=== PATIENT | male | born 1985 | race Two or more races ===

== ENCOUNTER 2021-08-23 14:58 | Emergency (ER) | payer MEDICAID, OTHER ==
[~2021-08-23] VITALS: Ht 170.2 cm; Wt 199.6 kg
[2021-08-23] MEDS ORDERED: FUROSEMIDE 40 MG/4 ML VIAL IV ONE (15:15)
[2021-08-23 15:35] VITALS: BP 146/85
[2021-08-23 15:56] LABS: Basophils # (auto) 0 10 ^3/uL (0-0.2); Basophils % (auto) 0.3 % (0.0-2.0); Eosinophils # (auto) 0 10 ^3/uL (0-0.8); Eosinophils % (auto) 0.5 % (0.0-7.0); Hematocrit 41.9 % (41.0-53.0); Hemoglobin 13.9 g/dL (13.5-17.5); Lymphocytes # (auto) 1.3 10 ^3/uL (0.4-5.4); Lymphocytes % (auto) 19.1 % (10.0-50.0); Mean Corpuscular Hgb Conc. 33.3 g/dL (32.0-36.0); Mean Corpuscular Volume 87.2 fL (80.0-100.0); Monocytes # (auto) 0.4 10 ^3/uL (0-1.3); Monocytes % (auto) 5.4 % (0.0-12.0); Neutrophils # (auto) 5.2 10 ^3/uL (1.6-8.6); Neutrophils % (auto) 74.7 % (37.0-80.0); Nucleated Red Blood Cells % 0.1 %; Red Cell Distribution Width 14.4 % (11.8-14.3)
[2021-08-23 16:31] LABS: Alanine Aminotransferase 115 U/L (16-61); Albumin 3.3 g/dL (3.4-5.0); Anion Gap 8 (5-15); Aspartate Aminotransferase 67 U/L (15-37); BUN/Creatinine Ratio 16.5; Blood Urea Nitrogen 14 mg/dL (7-18); Calcium 8.8 mg/dL (8.5-10.1); Carbon Dioxide 27 mmol/L (21-32); Chloride 108 mmol/L (98-107); GFR African American 133 mL/min; GFR Non-African American 110 mL/min; Glucose 120 mg/dL (74-106); Potassium 3.8 mmol/L (3.5-5.1); Sodium 143 mmol/L (136-145)
[2021-08-23 16:35] LABS: Alkaline Phosphatase 47 U/L (45-117); Bilirubin, Total 0.4 mg/dL (0.2-1.0); Total Protein 7.8 g/dL (6.4-8.2)
== END 2021-08-23 19:33 | disposition home or self-care (01) ==
LOC: ER 14:58
DX: I11.0 Hypertensive heart disease with heart failure (principal); I50.9 Heart failure, unspecified; E11.9 Type 2 diabetes mellitus without complications; E78.5 Hyperlipidemia, unspecified
CPT/HCPCS: 36415; 71045; 80053; 83880; 84484; 85025

== ENCOUNTER 2024-08-17 11:53 | Inpatient (IN) | payer MEDICAID ==
[~2024-08-17] VITALS: Ht 170.2 cm; Wt 205.0 kg
[2024-08-17] MEDS: NITROGLYCERIN 2% OINT 1GM PKG TD ONE (12:15)
[2024-08-17 12:20] LABS: Urine Bacteria None Seen /hpf (None Seen)
[2024-08-17 12:29] LABS: Urine Blood Negative /uL (Negative); Urine Clarity Clear (Clear); Urine Color Yellow (Yellow); Urine Protein, UAD 1+ (Negative); Urine Urobilinogen Normal (Negative); Urine WBC <1 /hpf (0 - 3); Urine pH 6.5 (5.0-9.0)
[2024-08-17] MEDS: ONDANSETRON ODT 4 MG TAB PO ONE (13:01)
[2024-08-17 13:27] LABS: Basophils # (auto) 0 10 ^3/uL (0-0.2); Basophils % (auto) 0.1 % (0.0-2.0); Eosinophils # (auto) 0.1 10 ^3/uL (0-0.8); Eosinophils % (auto) 1.4 % (0.0-7.0); Hematocrit 49.1 % (41.0-53.0); Hemoglobin 16.7 g/dL (13.5-17.5); Lymphocytes # (auto) 2.3 10 ^3/uL (0.4-5.4); Lymphocytes % (auto) 30.3 % (10.0-50.0); Mean Corpuscular Hemoglobin 29.7 pg (28.0-32.0); Mean Corpuscular Volume 87.2 fL (80.0-100.0); Monocytes # (auto) 0.6 10 ^3/uL (0-1.3); Monocytes % (auto) 7.4 % (0.0-12.0); Neutrophils # (auto) 4.6 10 ^3/uL (1.6-8.6); Neutrophils % (auto) 60.8 % (37.0-80.0); Nucleated Red Blood Cells % 0.1 %; Platelet Count (auto) 182 10^3/uL (140-450); Red Blood Cells 5.63 10^6/uL (4.5-5.90); Red Cell Distribution Width 15.1 % (11.8-14.3); White Blood Cell 7.5 10^3/uL (4.4-10.8)
[2024-08-17 13:46] LABS: Alanine Aminotransferase 93 U/L (7-40); Albumin 4.6 g/dL (3.2-4.8); Alkaline Phosphatase 56 U/L (46-116); Anion Gap 6 (5-15); Aspartate Aminotransferase 85 U/L (13-40); BUN/Creatinine Ratio 15.2 (10.0-20.0); Blood Urea Nitrogen 12 mg/dL (9-23); Calcium 9.6 mg/dL (8.7-10.4); Carbon Dioxide 32 mmol/L (20-31); Chloride 104 mmol/L (98-107); Glucose 107 mg/dL (74-106); Lipase 62 U/L (12-53); Potassium 3.3 mmol/L (3.5-5.1); Sodium 142 mmol/L (136-145)
[2024-08-17 13:47] LABS: Bilirubin, Total 0.5 mg/dL (0.2-1.0); Total Protein 7.8 g/dL (5.7-8.2)
[2024-08-17] MEDS: MORPHINE SULFATE 4 MG/ML SYR/VIAL IV ONE ×2 (13:52→17:57)
[2024-08-17] MEDS: POTASSIUM CHL 20 Meq TABLET PO ONE (16:57)
[2024-08-17] MEDS: ONDANSETRON HCL 4 MG/2 ML VIAL IV ONE (17:56)
[2024-08-17] MEDS ORDERED: ACETAMINOPHEN 325 MG TAB PO PRN (18:15)
[2024-08-17 19:50] VITALS: PULSE 82; RESP 14; O2SAT 97
[2024-08-17] MEDS: LACTATED RINGER'S 1,000 ML IV ONE (20:30)
[2024-08-17] MEDS: PANTOPRAZOLE 40 MG/10 ML VIAL INJ IV SCH (20:30)
[2024-08-17] MEDS: HYDROmorphone HCL 2 MG/ML VL/or syr IV PRN (20:54)
[2024-08-17] MEDS: ONDANSETRON HCL 4 MG/2 ML VIAL IV PRN (20:55)
[2024-08-17] MEDS: SODIUM CHLOR 0.9% PF (SALINE LOCK) 10ML VIAL/SYR IV SCH (21:36)
[2024-08-17 23:19] VITALS: BP 142/82; PULSE 74; RESP 18; TEMP 97.6; O2SAT 92
[2024-08-17 23:20] VITALS: BP 142/82; PULSE 74; PULSE 92; RESP 18; TEMP 97.6; O2SAT 92; O2SAT 96
[2024-08-18] VITALS (8 sets, daily range): BP systolic 119–144; BP diastolic 67–86; PULSE 65–83; RESP 16–18; TEMP 98–98.3; O2SAT 91–96
[2024-08-18 08:10] LABS: Basophils # (auto) 0 10 ^3/uL (0-0.2); Basophils % (auto) 0.3 % (0.0-2.0); Eosinophils # (auto) 0.1 10 ^3/uL (0-0.8); Eosinophils % (auto) 1.1 % (0.0-7.0); Hematocrit 44.9 % (41.0-53.0); Hemoglobin 15.2 g/dL (13.5-17.5); Lymphocytes % (auto) 35.8 % (10.0-50.0); Mean Corpuscular Hemoglobin 29.5 pg (28.0-32.0); Mean Corpuscular Hgb Conc. 33.9 g/dL (32.0-36.0); Monocytes # (auto) 0.4 10 ^3/uL (0-1.3); Monocytes % (auto) 6.9 % (0.0-12.0); Neutrophils # (auto) 3.1 10 ^3/uL (1.6-8.6); Neutrophils % (auto) 55.9 % (37.0-80.0); Nucleated Red Blood Cells % 0.1 %; Platelet Count (auto) 178 10^3/uL (140-450); Red Blood Cells 5.16 10^6/uL (4.5-5.90); White Blood Cell 5.6 10^3/uL (4.4-10.8)
[2024-08-18 08:27] LABS: Alanine Aminotransferase 76 U/L (7-40); Albumin 4.1 g/dL (3.2-4.8); Alkaline Phosphatase 40 U/L (46-116); Anion Gap 7 (5-15); BUN/Creatinine Ratio 17.6 (10.0-20.0); Blood Urea Nitrogen 13 mg/dL (9-23); Calcium 9.2 mg/dL (8.7-10.4); Carbon Dioxide 30 mmol/L (20-31); Chloride 104 mmol/L (98-107); Glucose 112 mg/dL (74-106); Magnesium 1.9 mg/dL (1.6-2.6); Potassium 2.9 mmol/L (3.5-5.1); Sodium 141 mmol/L (136-145)
[2024-08-18 08:28] LABS: Aspartate Aminotransferase 65 U/L (13-40); Bilirubin, Total 0.7 mg/dL (0.2-1.0); Total Protein 7.3 g/dL (5.7-8.2)
[2024-08-18] MEDS: ENOXAPARIN SOD 40 MG/0.4 ML SYRINGE SC SCH (08:57)
[2024-08-18] MEDS: POTASSIUM CHLORIDE 60 MEQ, LIDOCAINE 1% (LOCAL ANESTH.) 6 ML in SODIUM CHL 0.9% 500 ML IV ONE (11:12)
[2024-08-18] MEDS: POTASSIUM EFFERVESENT TAB 25 MEQ PO ONE (13:34)
[2024-08-18 15:09] LABS: Triglycerides 200 mg/dL (< 150)
[2024-08-18 15:10] LABS: LDL Cholesterol 109 mg/dL (< 100)
[2024-08-18 15:11] LABS: Cholesterol 173 mg/dL (< 200); HDL Cholesterol 37 mg/dL (40-59)
[2024-08-18] MEDS: HYDROcodone-ACET 5/325MG TAB PO PRN (17:17)
[2024-08-18] MEDS: ALPRAZolam 0.5 MG TAB PO PRN (20:13)
[2024-08-19] VITALS (8 sets, daily range): BP systolic 116–152; BP diastolic 79–93; PULSE 66–85; RESP 17–66; TEMP 97.5–98.3; O2SAT 90–100
[2024-08-19] MEDS: DOCUSATE SOD 100 MG CAP PO PRN (05:36)
[2024-08-19 06:29] LABS: Basophils # (auto) 0 10 ^3/uL (0-0.2); Basophils % (auto) 0.3 % (0.0-2.0); Eosinophils # (auto) 0.1 10 ^3/uL (0-0.8); Hematocrit 45.1 % (41.0-53.0); Hemoglobin 15.4 g/dL (13.5-17.5); Lymphocytes # (auto) 2.1 10 ^3/uL (0.4-5.4); Mean Corpuscular Hemoglobin 29.8 pg (28.0-32.0); Mean Corpuscular Hgb Conc. 34.1 g/dL (32.0-36.0); Mean Corpuscular Volume 87.5 fL (80.0-100.0); Monocytes # (auto) 0.5 10 ^3/uL (0-1.3); Monocytes % (auto) 8.1 % (0.0-12.0); Neutrophils % (auto) 52.6 % (37.0-80.0); Nucleated Red Blood Cells % 0.2 %; Platelet Count (auto) 173 10^3/uL (140-450); Red Blood Cells 5.15 10^6/uL (4.5-5.90); Red Cell Distribution Width 14.7 % (11.8-14.3); White Blood Cell 5.8 10^3/uL (4.4-10.8)
[2024-08-19 06:52] LABS: Alanine Aminotransferase 81 U/L (7-40); Albumin 4.4 g/dL (3.2-4.8); Alkaline Phosphatase 40 U/L (46-116); Anion Gap 5 (5-15); Aspartate Aminotransferase 70 U/L (13-40); BUN/Creatinine Ratio 12.3 (10.0-20.0); Bilirubin, Total 0.9 mg/dL (0.2-1.0); Blood Urea Nitrogen 9 mg/dL (9-23); Calcium 9.3 mg/dL (8.7-10.4); Carbon Dioxide 33 mmol/L (20-31); Chloride 101 mmol/L (98-107); Glucose 109 mg/dL (74-106); Magnesium 2.1 mg/dL (1.6-2.6); Potassium 3.1 mmol/L (3.5-5.1); Sodium 139 mmol/L (136-145); Total Protein 7.7 g/dL (5.7-8.2)
[2024-08-19] MEDS: POTASSIUM CHL 20 Meq TABLET PO ONE (07:45)
[2024-08-19] MEDS: SUCRALFATE 1 GM TAB PO STA (14:01)
[2024-08-19] MEDS ORDERED: CHOL20007 PO (16:57)
[2024-08-19] MEDS ORDERED: ASPI-717 PO (16:57)
[2024-08-19] MEDS ORDERED: CHLO50TA PO (16:57)
[2024-08-19] MEDS ORDERED: MULT-351 PO (16:57)
[2024-08-19] MEDS ORDERED: ENAL1TAB46 PO (16:57)
[2024-08-19] MEDS ORDERED: POTA-228 PO (16:57)
[2024-08-19] MEDS ORDERED: ALLO100T PO (16:57)
[2024-08-19] MEDS ORDERED: SEMA2INJ3 SC (16:57)
[2024-08-19] MEDS ORDERED: MAGN400T40 PO (16:57)
[2024-08-19] MEDS ORDERED: ALPR0.5T PO (16:57)
[2024-08-19] MEDS ORDERED: FENO200C22 PO (16:57)
[2024-08-19] MEDS ORDERED: OMEP20TA44 PO (16:57)
[2024-08-19] MEDS: SUCRALFATE 1 GM TAB PO SCH (21:11)
[2024-08-20 05:23] LABS: Basophils # (auto) 0 10 ^3/uL (0-0.2); Basophils % (auto) 0.4 % (0.0-2.0); Eosinophils # (auto) 0.1 10 ^3/uL (0-0.8); Eosinophils % (auto) 1.8 % (0.0-7.0); Hematocrit 41.7 % (41.0-53.0); Hemoglobin 14.2 g/dL (13.5-17.5); Lymphocytes # (auto) 1.6 10 ^3/uL (0.4-5.4); Mean Corpuscular Hemoglobin 29.5 pg (28.0-32.0); Mean Corpuscular Volume 86.7 fL (80.0-100.0); Monocytes # (auto) 0.3 10 ^3/uL (0-1.3); Monocytes % (auto) 7.6 % (0.0-12.0); Neutrophils # (auto) 2.4 10 ^3/uL (1.6-8.6); Neutrophils % (auto) 54.2 % (37.0-80.0); Nucleated Red Blood Cells % 0.2 %; Platelet Count (auto) 156 10^3/uL (140-450); Red Blood Cells 4.81 10^6/uL (4.5-5.90); Red Cell Distribution Width 14.4 % (11.8-14.3); White Blood Cell 4.5 10^3/uL (4.4-10.8)
[2024-08-20 05:38] LABS: Alanine Aminotransferase 78 U/L (7-40); Albumin 4.1 g/dL (3.2-4.8); Alkaline Phosphatase 37 U/L (46-116); Anion Gap 5 (5-15); Aspartate Aminotransferase 66 U/L (13-40); BUN/Creatinine Ratio 9.1 (10.0-20.0); Blood Urea Nitrogen 6 mg/dL (9-23); Calcium 8.9 mg/dL (8.7-10.4); Carbon Dioxide 30 mmol/L (20-31); Chloride 103 mmol/L (98-107); Glucose 107 mg/dL (74-106); Lipase 45 U/L (12-53); Potassium 2.9 mmol/L (3.5-5.1); Sodium 138 mmol/L (136-145)
[2024-08-20 05:39] LABS: Bilirubin, Total 0.8 mg/dL (0.2-1.0); Total Protein 7.1 g/dL (5.7-8.2)
[2024-08-20] MEDS: POTASSIUM CHL 20 Meq TABLET PO ONE (07:00)
[2024-08-20 08:00] VITALS: PULSE 64; RESP 19; O2SAT 94
[2024-08-20 09:00] VITALS: BP 133/85; PULSE 64; RESP 22; TEMP 97.6; O2SAT 100
[2024-08-20] MEDS: POTASSIUM CHL 20 Meq TABLET PO STA (09:40)
[2024-08-20] MEDS: LACTULOSE 20Gm/30ML SOLN PO STA (10:07)
[2024-08-20 12:34] VITALS: BP 129/71; PULSE 64; RESP 19; TEMP 98.2; O2SAT 94
[2024-08-20 13:00] VITALS: BP 129/71; PULSE 64; RESP 19; TEMP 98.2; O2SAT 94
[2024-08-21] MEDS ORDERED: POTASSIUM CHL 10 Meq TABLET PO SCH (10:00)
[2024-08-21] MEDS ORDERED: PANT40T PO (10:19)
[2024-08-21] MEDS ORDERED: SUCR1TAB PO (10:19)
[2024-08-21] MEDS ORDERED: POTA-36 PO (10:19)
[2024-08-22 15:23] LABS: Hepatitis A Total Antibody Negative (Negative); Hepatitis B Core Total AB Negative (Negative); Hepatitis B Surface Antibody Negative (Negative); Hepatitis B Surface Antigen Negative (Negative); Hepatitis C Antibody Negative (Negative)
== END 2024-08-20 14:07 | disposition home or self-care (01) | DRG 241 ==
LOC: ER 11:53 → EEVIPCON 18:12 → OVERFLOW 18:12 → CENTRAL 18:13
PROVIDERS: ADMIT Internal Medicine Geriatric Medicine; ATTEND Internal Medicine Geriatric Medicine
PROC: 5A09357 Assistance with Respiratory Ventilation, Less than 24 Consecutive Hours, Continuous Positive Airway Pressure (ICD-10-PCS; principal; 2024-08-17)
DX: K29.00 Acute gastritis without bleeding (principal); I27.20 Pulmonary hypertension, unspecified; K76.0 Fatty (change of) liver, not elsewhere classified; Z68.44 Body mass index [BMI] 60.0-69.9, adult; E87.6 Hypokalemia; R07.9 Chest pain, unspecified; E11.9 Type 2 diabetes mellitus without complications; E78.5 Hyperlipidemia, unspecified; K21.9 Gastro-esophageal reflux disease without esophagitis; M10.9 Gout, unspecified; E66.01 Morbid (severe) obesity due to excess calories; Z80.42 Family history of malignant neoplasm of prostate; Z88.5 Allergy status to narcotic agent
CPT/HCPCS: 36415; 71045; 74176; 76705; 80053; 80061; 81001; 82728; 83036; 83690; 83735; 83880; 84484; 85025; 86704; 86706; 86708; 86803; 87340; 93005; G0378; J2003; J2405; J2470; Q0162

== ENCOUNTER 2025-08-01 09:11 | Inpatient (IN) | payer MEDICAID ==
[~2025-08-01] VITALS: Ht 170.2 cm; Wt 193.0 kg
[~2025-08-01 09:11] MED LIST: ALLO100T PO; ALPR0.5T PO; ASPI-717 PO; CHLO50TA PO; CHOL20007 PO; ENAL1TAB46 PO; FENO200C22 PO; MAGN400T40 PO; MULT-351 PO; OMEP20TA44 PO; PANT40T PO; POTA-228 PO; POTA-36 PO; SEMA2INJ3 SC; SUCR1TAB PO
[2025-08-01 09:44] LABS: Hematocrit 44.9 % (41.0-53.0); Hemoglobin 15.5 g/dL (13.5-17.5); Mean Corpuscular Hemoglobin 29.6 pg (28.0-32.0); Mean Corpuscular Volume 85.6 fL (80.0-100.0); Nucleated Red Blood Cells % 0.0 %
--- NOTE | 2025-08-01 10:12 | ED.PDOC ---
GI ASSESSMENT HPI Comments Clotilde Bosch is a 39-year-old male, with past medical history of morbid obesity, HTN, DM2,, hyperlipidemia, gout, GERD, pancreatitis (2023) and pulmonary hypertension. The patient came to the ED with chief complain of 3 days of abdominal pain 7/10, cramp-like, localized in epigastrium, that irradiates "band like" to the sides; associated with fever (102 at home) nausea, vomit #3 of gastric content and watery diarrhea, yellowish, small amounts. On further questioning, the patient reports he is a heavy alcohol drinker, he drinks about 1 bottle of vodka on the weekends, last drink was 5 days ago. Today, the patient reports worsen in abdominal pain to 10/10, nausea and vomit #3, this promoted his visit to the ED. On the ED his BP: 161/105mmHg, 87bpm. CT abd/pelv, lipase and labs were ordered. Attestation note: Dr. Tee: I was the supervising attending for this ED encounter. Please see the resident's notes. I was available for questions and consultations. MDM: MDM: patient presented with the above HPI.---abdominal pain nausea vomiting diarrhea---workup was initiated. patient was found with the above mentioned diagnosis. the following medications were ordered: please refer to order lists of meds and tests obtained by myself Dr. Tee. Patient ED course and VS have been stabilized. Patient has been reassessed in the ED and remained in a stable condition. Pertinent incidental findings were discussed with the patient and/or family. Patient/family voices understanding and is agreeable with plan. Patient has been observed in the ED adequate length of time to insure improvement/stability. Escalation of care considered: Consideration of escalation to observation or admission Stool studies shows WBC. Antibiotics and fluids initiated. Pain medication was given. Patient was ADMITTED to the medicine team for further evaluation and treatment of their presentation. . All the reports of any imaging studies that were ordered by myself were reviewed by myself. Chief Complaint: Abdominal pain Time Seen by MD: 09:33 Primary Care Provider: ANKITA Reviewed Notes: Nurses Notes, Medications, Allergies (Morphine) Allergies: Coded Allergies: Morphine (Verified Allergy, Unknown, 08/18/24) pt reports "felt like his throat closed up" has anxiety with taking morphine Home Meds Active Scripts Potassium Chloride (POTASSIUM CHLORIDE CR) 10 Meq Tb, 10 MEQ PO DAILY for 10 Days, #10 TAB Prov:MARCELLA RFANCO RESIDENT 08/21/24 Sucralfate (Sucralfate) 1 Gm Tab, 1 GM PO BID for 15 Days, #30 TAB Prov:MARCELLA FRANCO RESIDENT 08/21/24 Pantoprazole Sodium Sesquihydr (Pantoprazole Sodium) 40 Mg Tab, 40 MG PO DAILY for 30 Days, #30 TAB Prov:MARCELLA FRANCO RESIDENT 08/21/24 Reported Medications Cholecalciferol (D3 SUPER STRENGTH) 2,000 Unit Cap, 1 CAP PO DAILY 08/01/25 Semaglutide (Ozempic) 2 Mg/3 Ml Inj, 1 MG SC, INJ 08/19/24 Alprazolam (Xanax) 0.5 Mg Tb, 1 TAB PO BIDPRN, #60 TAB 08/19/24 Allopurinol (Allopurinol) 100 Mg Tab, 100 MG PO DAILY for 30 Days, MG 08/19/24 Cholecalciferol (VITAMIN D3) 2,000 Unit Tab, 1 TAB PO DAILY, #30 TAB 5 Refills 08/19/24 Omeprazole ([facility]vs Omeprazole) 20 Mg Tab, 40 MG PO DAILY, TAB 08/19/24 Multiple Vitamins W/ Minerals (Mvi W/ Minerals Tab) 1 Tab Tb, 1 TAB PO DAILY, TAB 08/19/24 Magnesium Oxide (MAGNESIUM OXIDE) 400 Mg Tab, 1 TAB PO DAILY, #30 TAB 5 Refills 08/19/24 Enalapril Maleate (VASOTEC TABLET) 10 Mg Tb, 20 MG PO DAILY, TAB 08/19/24 Chlorthalidone (Chlorthalidone) 50 Mg Tab, 50 MG PO DAILY, TAB 08/19/24 Potassium Chloride (Potassium Chloride ER) 10 Meq Tab, 8 MEQ PO DAILY, TAB 08/19/24 Fenofibrate Micronized (Fenofibrate) 200 Mg Cap, 160 MG PO DAILY, CAP 08/19/24 Aspirin Buffered (Mahesh Carb-Mag (Aspirin 325 mg) 1 Tab Tab, 1 TAB PO DAILY, TAB 08/19/24 Information Source: Patient Mode of Arrival: Ambulatory Timing: Days Duration: Since onset Quality: Cramping Vomitus: Food Particles Stool: Watery, Yellow Severity: Moderate Recent: Ingestion of ETOH Past Medical History PAST MEDICAL HISTORY: DM, GERD, Gout, High Lipids, HTN, Kidney Stones Past Medical History (Other): Pancreatitis (07/2024) Pulmonary hypertension Surgical History: Tonsillectomy (in his childhood.) Family History Family History: Reviewed,noncontributory to illness Social History Smoker: Non-Smoker Alcohol: Heavy (1 bottle of vodka on the weekends.) Drugs: Denies Drug Use Lives In: Home Constitutional: reports: fever (102 at home ); denies: chills, diaphoresis, fatigue, malaise, sweats, weakness, others EENTM: denies: blurred vision, double vision, ear bleeding, ear discharge, ear drainage, ear pain, ear ringing, eye pain, eye redness, hearing loss, mouth pain, mouth swelling, nasal discharge, nose bleeding, nose congestion, nose pain, photophobia, tearing, throat pain, throat swelling, voice changes, others Respiratory: denies: cough, hemoptysis, orthopnea, SOB at rest, shortness of breath, SOB with excertion, stridor, wheezing, others Cardiovascular: denies: chest pain, dizzy spells, diaphoresis, Dyspnea on exertion, edema, irregular heart beat, left arm pain, lightheadedness, palpitations, PND, syncope, others Gastrointestinal: reports: abdominal pain, diarrhea, nausea, vomiting Genitourinary: denies: burning, dysuria, flank pain, frequency, hematuria, incontinence, penile discharge, penile sore, pain, testicle pain, testicle swelling, urgency, others Neurological: denies: dizziness, fainting, headache, left sided numbness, left sided weakness, numbness, paresthesia, pre-existing deficit, right sided numbness, right sided weakness, seizure, speech problems, tingling, tremors, weakness, others Musculoskeletal: denies: back pain, gout, joint pain, joint swelling, muscle pain, muscle stiffness, neck pain, others Integumetry: denies: bruises, change in color, change in hair/nails, dryness, laceration, lesions, lumps, rash, wounds, others Allergic/Immunocompromised: denies: Difficulty Healing, Frequent Infections, Hives, Itching, others Hematologic/Lymphatic: denies: anemia, blood clots, easy bleeding, easy bruising, swollen glands, others Physical Exam General Appearance: Moderate Distress, Normal HEENT: Normal ENT Inspection, Pharynx Normal, TMs Normal Neck: Full Range of Motion, Non-Tender, Normal, Normal Inspection Respiratory: Chest Non-Tender, Lungs Clear, No Accessory Muscle Use, No Respiratory Distress, Normal Breath Sounds Cardiovascular: No Edema, No JVD, No Murmur, No Gallop, Normal Peripheral Pulses, Regular Rate/Rhythm Breast Exam: Deferred Gastrointestinal: No Organomegaly, Non Tender, No Pulsatile Mass, Normal Bowel Sounds, Soft Genitalia: Deferred Pelvic: Deferred Rectal: Deferred Extremities: No calf tenderness, Normal capillary refill, Normal inspection, Normal range of motion, Non-tender, No pedal edema Musculoskeletal : Apperance: Normal Neurologic: Alert, 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 Was a procedure done?: No GI differential Dx Differential Diagnosis: Esophagitis, Gastritis/PUD, Gastroenteritis, Inflammatory BD, Ischemic Bowel, Pancreatitis, Dehydration, Diabetes/ DKA, El ectrolyte Imbalance, Food Poisoning, , Bacterial, Parasitic, Viral, Hypovolemia, Impaction, Other (DDX include but not limited to diverticulitis, colitis, gastroenteritis, acute abdomen, SBO, enteritis, constipation, volvulus, appendicitis, Gallbladder disease, choledocolithiasis, ascending cholangitis, pancreatitis, intraAbdominal mass/neoplasm, hepatitis, UTI, pylonephritis, kidney stone, aneurysm, dissection, Inflammatory bowel disease, gastroparesis, ischemic bowel.) X-Ray, Labs, Meds, VS Vital Signs Date Time Temp Pulse Resp B/P (MAP) Pulse Ox O2 Delivery O2 Flow Rate FiO2 08/01/25 16:00 81 14 141/76 (97) 100 08/01/25 14:01 98.4 80 20 146/80 (102) 94 98.4 08/01/25 12:12 153/75 08/01/25 12:00 82 11 153/75 (101) 97 08/01/25 11:30 90 16 96 Nasal Cannula* 4 36 08/01/25 10:17 98.9 81 16 129/55 (79) 98 98.9 08/01/25 09:13 97.6 87 18 161/105 96 97.6 Lab Test 08/01/25 11:20 08/01/25 09:28 Range/Units Stool for White Cells Few White Blood Count 6.6 4.4-10.8 10^3/uL Red Blood Count 5.25 4.5-5.90 10^6/uL Hemoglobin 15.5 13.5-17.5 g/dL Hematocrit 44.9 41.0-53.0 % Mean Corpuscular Volume 85.6 80.0-100.0 fL Mean Corpuscular Hemoglobin 29.6 28.0-32.0 pg Mean Corpuscular Hemoglobin Concent 34.5 32.0-36.0 g/dL Red Cell Distribution Width 14.1 11.8-14.3 % Platelet Count 194 140-450 10^3/uL Mean Platelet Volume 8.4 6.9-10.8 fL Neutrophils (%) (Auto) 67.7 37.0-80.0 % Lymphocytes (%) (Auto) 22.3 10.0-50.0 % Monocytes (%) (Auto) 8.9 0.0-12.0 % Eosinophils (%) (Auto) 0.9 0.0-7.0 % Basophils (%) (Auto) 0.2 0.0-2.0 % Neutrophils # (Auto) 4.5 1.6-8.6 10 ^3/uL Lymphocytes # (Auto) 1.5 0.4-5.4 10 ^3/uL Monocytes # (Auto) 0.6 0-1.3 10 ^3/uL Eosinophils # (Auto) 0.1 0-0.8 10 ^3/uL Basophils # (Auto) 0 0-0.2 10 ^3/uL Nucleated Red Blood Cells 0.0 % Sodium Level 142 136-145 mmol/L Potassium Level 3.4 L 3.5-5.1 mmol/L Chloride Level 103 98-107 mmol/L Carbon Dioxide Level 26 20-31 mmol/L Anion Gap 13 5-15 Blood Urea Nitrogen 9 9-23 mg/dL Creatinine 0.77 0.700-1.30 mg/dL Glomerular Filtration Rate Calc 118 >90 mL/min BUN/Creatinine Ratio 11.7 10.0-20.0 Serum Glucose 106 74-106 mg/dL Hemoglobin A1c 5.7 <5.7 % A1C Lactic Acid Level 1.8 0.4-2.0 mmol/L Calcium Level 9.4 8.7-10.4 mg/dL Magnesium Level 1.7 1.6-2.6 mg/dL Total Bilirubin 0.5 0.2-1.0 mg/dL Aspartate Amino Transferase (AST) 30 13-40 U/L Alanine Aminotransferase (ALT) 37 7-40 U/L Alkaline Phosphatase 44 L 46-116 U/L Total Protein 8.1 5.7-8.2 g/dL Albumin 4.7 3.2-4.8 g/dL Lipase 66 H 12-53 U/L Microbiology Date/Time Source Procedure Growth Status 08/01/25 11:20 Stool Stool Culture - Preliminary Resulted 08/01/25 11:20 Stool Shiga Toxin I & II - Final Resulted Current Medications Medications (Trade) Dose Ordered Sig/Karan Route Start Time Stop Time Status Last Admin Fentanyl Citrate 100 mcg ONCE ONCE IV 08/01/25 11:45 08/01/25 11:46 DC 08/01/25 12:12 Ondansetron HCl (Zofran) 4 mg ONCE ONCE IV 08/01/25 12:45 08/01/25 12:46 DC 08/01/25 12:44 Ciprofloxacin 200 ml @ 200 mls/hr ONCE ONCE IV 08/01/25 16:15 08/01/25 17:14 DC 08/01/25 17:00 Potassium Chloride (Klor-Con Tablet) 40 meq ONCE ONCE PO 08/01/25 16:15 08/01/25 16:49 DC 08/01/25 17:35 Sodium Chloride 1,000 ml @ 120 mls/hr Q8H20M IV 08/01/25 16:15 08/01/25 17:[address] [address] Ph: [phone] DIAGNOSTIC IMAGING Diagnostic Imaging Report : [id number] Signed PATIENT: CLOTILDE REGALADO ACCT: [id number] UNIT: [id number] : 1985 LOC: ER ROOM / BED: / AGE / SEX: 39 / M ADM STATUS: REG ER SERVICE 0913 ORDERING PHYSICIAN: LIVE TEE DO PROCEDURE(s): ABPL - CT AB PEL WO CON-NO ORAL OR IV REASON: n/v/d ORDER NUMBER(s): [id number], ACCESSION NUMBER(s): [id number] Exam: CT CT AB PEL WO CON-NO ORAL OR IV History: n/v/d Comparison Study: Report from a prior US ABDOMEN LIMITED on DOS: 08/17/24 Technique: Multidetector spiral CT of the abdomen and pelvis was performed from lung bases to pubic symphysis. Imaging was performed without intravenous contrast. Coronal and sagittal multiplanar reformats were obtained from the axial data set by the technologist. Radiation Dose : 1. Abdomen/Pelvis: CTDIvol 27.88 mGy, DLP 1539 mGy*cm. Findings: Evaluation of vasculature and solid organs is limited due to lack of intravenous contrast use. Lung Bases: Lung bases are clear. Visualized portions of the heart and pericardium are unremarkable. Liver: The liver is enlarged measuring 20 cm in length. Diffusely hypoattenuating liver parenchyma consistent with hepatic steatosis. Gallbladder and Biliary Tree: The gallbladder is unremarkable. No intrahepatic or extrahepatic biliary ductal dilatation. Spleen: Unremarkable Pancreas: The pancreas is grossly unremarkable. Adrenal Glands: Unremarkable Kidneys: Kidneys are unremarkable without calculi or hydronephrosis. GI tract: The stomach is grossly normal in appearance. Fluid-filled small bowel loops without a transition point. There is colonic diverticulosis without diverticulitis. The appendix is not visualized, however no inflammatory changes in the right lower quadrant to suggest acute appendicitis. Peritoneum/mesentery/retroperitoneum. No evidence of free intraperitoneal air. No ascites. No evidence of suspicious lymphadenopathy. Abdominal Wall: There is a fat containing umbilical hernia. Vasculature: The visualized abdominal aorta is normal in size and caliber. Evaluation of abdominal and pelvic vessels is limited due to lack of intravenous contrast. Urinary Bladder: Grossly unremarkable for degree of distention. Pelvic Organs: Unremarkable Musculoskeletal: No aggressive focal bony lesions, acute fractures or dislocation. IMPRESSION: 1. Fluid-filled small bowel loops without a transition point. Findings are co mpatible with enteritis. 2. Hepatomegaly and hepatic steatosis. 3. Colonic diverticulosis without diverticulitis. ATED BY: JOHN EVERETT MD DICTATED DATE/TIME: 08/01/25 1015 SIGNED BY: JOHN EVERETT MD SIGNED DATE/TIME: 08/01/255 CC: X-Ray, Labs, Meds, VS Comment 11:00 am The patient has been re-assessed. The patient reports improvement of abdominal pain 04/08 CBC: 6.6 x10e3, Hb:15mg/dl CMP: Lactic acid 1.8 ALP 44 1. Fluid-filled small bowel loops without a transition point. Findings are compatible with enteritis. 2. Hepatomegaly and hepatic steatosis. 3. Colonic diverticulosis without diverticulitis. 14:00 Patient reports nausea and pain is better after medications 15:37 Patient reports pain level 04/08 Stool sample: few WBC The patient will be admitted for further assessment and management Images Reviewed?: Images reviewed and evaluated by me (and Dr. Tee) Time of 1ST Reevaluation: 11:00 Reevaluation 1ST: Improved Time of 2ND Reevaluation: 14:00 Reevaluation 2ND: Improved Time of 3RD Reevaluation: 15:37 Reevaluation 3RD: Improved Patient Education/Counseling: Diagnosis, Treatment, Prognosis, Need For Follow Up Family Education/Counseling: No Family Present SEPSIS Sepsis Screen Date sepsis recognized/suspect: Aug 01, 2025 Time Sepsis recognized/suspect: 914 Recent Procedure: No On Antibiotic Therapy: No Respiratory Rate >20: No Heart Rate >90: No Temp<36 C (96.8 F) or >38.3 C: No SBP <90 or MAP <65 mmHG: No New Acute Mental Status Change: No Is the patient on CPAP, BIPAP,: No Physician Orders Ct Ab Pel Wo Con-No Oral Or Iv (08/01/25 09:13) Ova & Parasite Exam (08/01/25 09:13) Stool Bacterial Culture (08/01/25 09:13) Pantoprazole (Protonix) (08/02/25 10:00) Urinalysis (08/01/25 16:14) Drug Screen (08/01/25 16:14) Allergies (08/01/25 16:14) Code Status (08/01/25 16:14) Sodium Chloride 0.9% (08/01/25 16:15) Ondansetron Hcl (Zofran) (08/01/25 16:15) Complete Blood Count (08/02/25 04:00) Comprehensive Metabolic Panel (08/02/25 04:00) Cardiac Diet-2gna,Lofat,Lochol (08/01/25 Dinner) Acetaminophen Tablet (Tylenol Tablet) (08/01/25 16:15) Ketorolac Injection (Toradol Injection) (08/01/25 16:15) Ketorolac Injection (Toradol Injection) (08/01/25 16:15) Glucose Blood (Accu-Chek Comfort Curve T (08/01/25 17:00) Insulin R (Human) (Insulin R) (08/01/25 17:00) Dextrose 50% Syringe (08/01/25 16:15) Sequential Compression Device (08/01/25 ) Allopurinol Tablet (Zyloprim Tablet) (08/02/25 10:00) Alprazolam Tablet (Xanax Tablet) (08/01/25 22:00) Enalapril Tablet (Vasotec Tablet) (08/02/25 10:00) Multiple Vitamin W Mineral Tab (Mvi W/ M (08/02/25 10:00) Aspirin Enteric Coated Tablet (Ecotrin E (08/02/25 10:00) (Nf) Chlorthalidone (08/02/25 10:00) Cholecalciferol Tablet (Vitamin D3 Table (08/02/25 10:00) (Nf) Fenofibrate Micronized (Fenofibrate (08/02/25 10:00) Blood Culture (08/01/25 16:21) Ciprofloxacin 400mg/200ml (Cipro Iv) (08/02/25 00:00) Vital Signs Date Time Temp Pulse Resp B/P (MAP) Pulse Ox O2 Delivery O2 Flow Rate FiO2 08/01/25 16:00 81 14 141/76 (97) 100 08/01/25 14:01 98.4 80 20 146/80 (102) 94 98.4 08/01/25 12:12 153/75 08/01/25 12:00 82 11 153/75 (101) 97 08/01/25 11:30 90 16 96 Nasal Cannula* 4 36 08/01/25 10:17 98.9 81 16 129/55 (79) 98 98.9 08/01/25 09:13 97.6 87 18 161/105 96 97.6 Laboratory Tests Test 08/01/25 09:28 Lactic Acid Level 1.8 mmol/L (0.4-2.0) White Blood Count 6.6 10^3/uL (4.4-10.8) Medications Medications Dose Ordered Sig/Karan Route Start Time Stop Time Status Last Admin Dose Admin Ciprofloxacin 200 ml @ 200 mls/hr ONCE ONCE IV 08/01/25 16:15 08/01/25 17:14 DC 08/01/25 17:00 Fentanyl Citrate 100 mcg ONCE ONCE IV 08/01/25 11:45 08/01/25 11:46 DC 08/01/25 12:12 Ondansetron HCl 4 mg ONCE ONCE IV 08/01/25 12:45 08/01/25 12:46 DC 08/01/25 12:44 Potassium Chloride 40 meq ONCE ONCE PO 08/01/25 16:15 08/01/25 16:49 DC 08/01/25 17:35 Sodium Chloride 1,000 ml @ 120 mls/hr Q8H20M IV 08/01/25 16:15 08/01/25 17:00 Departure 1 Departure Time of Disposition: 15:31 Impression: Primary Impression: Enteritis Additional Impressions: Nausea vomiting and diarrhea Abdominal pain Disposition: ADMITTED INPATIENT Admit to: Tele Condition: Guarded Additional Instructions: [place] [address] Ph: [phone] DIAGNOSTIC IMAGING Diagnostic Imaging Report : [id number] Signed PATIENT: CLOTILDE REGALADO ACCT: [id number] UNIT: [id number] : 1985 LOC: ER ROOM / BED: / AGE / SEX: 39 / M ADM STATUS: REG ER SERVICE 0913 ORDERING PHYSICIAN: LIVE TEE DO PROCEDURE(s): ABPL - CT AB PEL WO CON-NO ORAL OR IV REASON: n/v/d ORDER NUMBER(s): [id number], ACCESSION NUMBER(s): [id number] Exam: CT CT AB PEL WO CON-NO ORAL OR IV History: n/v/d Comparison Study: Report from a prior US ABDOMEN LIMITED on DOS: 08/17/24 Technique: Multidetector spiral CT of the abdomen and pelvis was performed from lung bases to pubic symphysis. Imaging was performed without intravenous contrast. Coronal and sagittal multiplanar reformats were obtained from the axial data set by the technologist. Radiation Dose : 1. Abdomen/Pelvis: CTDIvol 27.88 mGy, DLP 1539 mGy*cm. Findings: Evaluation of vasculature and solid organs is limited due to lack of intravenous contrast use. Lung Bases: Lung bases are clear. Visualized portions of the heart and pericard ium are unremarkable. Liver: The liver is enlarged measuring 20 cm in length. Diffusely hypoattenuating liver parenchyma consistent with hepatic steatosis. Gallbladder and Biliary Tree: The gallbladder is unremarkable. No intrahepatic or extrahepatic biliary ductal dilatation. Spleen: Unremarkable Pancreas: The pancreas is grossly unremarkable. Adrenal Glands: Unremarkable Kidneys: Kidneys are unremarkable without calculi or hydronephrosis. GI tract: The stomach is grossly normal in appearance. Fluid-filled small bowel loops without a transition point. There is colonic diverticulosis without diverticulitis. The appendix is not visualized, however no inflammatory changes in the right lower quadrant to suggest acute appendicitis. Peritoneum/mesentery/retroperitoneum. No evidence of free intraperitoneal air. No ascites. No evidence of suspicious lymphadenopathy. Abdominal Wall: There is a fat containing umbilical hernia. Vasculature: The visualized abdominal aorta is normal in size and caliber. Evaluation of abdominal and pelvic vessels is limited due to lack of intravenous contrast. Urinary Bladder: Grossly unremarkable for degree of distention. Pelvic Organs: Unremarkable Musculoskeletal: No aggressive focal bony lesions, acute fractures or dislocation. IMPRESSION: 1. Fluid-filled small bowel loops without a transition point. Findings are compatible with enteritis. 2. Hepatomegaly and hepatic steatosis. 3. Colonic diverticulosis without diverticulitis. ATED BY: JOHN EVERETT MD DICTATED DATE/TIME: 08/01/25 1015 SIGNED BY: JOHN EVERETT MD SIGNED DATE/TIME: 08/01/25 1015 CC: Discharged With: Self Comments Goals of care discussed with the patient > 35 min. Discussed plan of care with Dr. Tee Code status: Full code PCP: Dr. Khalil Plan discussed with: Patient, the patient agrees with the admission plan. Critical Care Note Critical Care Time?: No Stability Stability form required: No Heart Score Heart Score: Heart Score Response (Comments) Value History N/A 0 EKG N/A 0 Age N/A 0 Risk Factors N/A 0 Troponin N/A 0 Total 0 I personally scribed for VERONIKA WING ([facility] on 08/01/25 at 10:41. Electronically submitted by Lennie Johnson ([facility]). VERONIKA WING Aug 01, 2025 10:12 LIVE TEE DO Aug 01, 2025 10:40
[2025-08-01 10:18] LABS: Alanine Aminotransferase 37 U/L (7-40); Albumin 4.7 g/dL (3.2-4.8); Anion Gap 13 (5-15); BUN/Creatinine Ratio 11.7 (10.0-20.0); Bilirubin, Total 0.5 mg/dL (0.2-1.0); Blood Urea Nitrogen 9 mg/dL (9-23); Calcium 9.4 mg/dL (8.7-10.4); Carbon Dioxide 26 mmol/L (20-31); Chloride 103 mmol/L (98-107); Sodium 142 mmol/L (136-145); Total Protein 8.1 g/dL (5.7-8.2)
--- NOTE | 2025-08-01 10:18 | DVH ---
Exam: CT CT AB PEL WO CON-NO ORAL OR IV History: n/v/d Comparison Study: Report from a prior US ABDOMEN LIMITED on DOS: 08/17/24 Technique: Multidetector spiral CT of the abdomen and pelvis was performed from lung bases to pubic s ymphysis. Imaging was performed without intravenous contrast. Coronal and sagittal multiplanar reform ats were obtained from the axial data set by the technologist. Radiation Dose : 1. Abdomen/Pelvis: CTDIvol 27.88 mGy, DLP 1539 mGy*cm. Findings: Evaluation of vasculature and solid organs is limited due to lack of intravenous contrast use. Lung Bases: Lung bases are clear. Visualized portions of the heart and pericardium are unremarkable. Liver: The liver is enlarged measuring 20 cm in length. Diffusely hypoattenuating liver parenchyma co nsistent with hepatic steatosis. Gallbladder and Biliary Tree: The gallbladder is unremarkable. No intrahepatic or extrahepatic biliar y ductal dilatation. Spleen: Unremarkable Pancreas: The pancreas is grossly unremarkable. Adrenal Glands: Unremarkable Kidneys: Kidneys are unremarkable without calculi or hydronephrosis. GI tract: The stomach is grossly normal in appearance. Fluid-filled small bowel loops without a trans ition point. There is colonic diverticulosis without diverticulitis. The appendix is not visualized, however no inflammatory changes in the right lower quadrant to suggest acute appendicitis. Peritoneum/mesentery/retroperitoneum. No evidence of free intraperitoneal air. No ascites. No evidenc e of suspicious lymphadenopathy. Abdominal Wall: There is a fat containing umbilical hernia. Vasculature: The visualized abdominal aorta is normal in size and caliber. Evaluation of abdominal a nd pelvic vessels is limited due to lack of intravenous contrast. Urinary Bladder: Grossly unremarkable for degree of distention. Pelvic Organs: Unremarkable Musculoskeletal: No aggressive focal bony lesions, acute fractures or dislocation. IMPRESSION: 1. Fluid-filled small bowel loops without a transition point. Findings are compatible with enteritis . 2. Hepatomegaly and hepatic steatosis. 3. Colonic diverticulosis without diverticulitis.
[2025-08-01 10:19] LABS: Alkaline Phosphatase 44 U/L (46-116); Glucose 106 mg/dL (74-106); Potassium 3.4 mmol/L (3.5-5.1)
[2025-08-01 11:30] VITALS: PULSE 90; RESP 16; O2SAT 96
[2025-08-01] MEDS: fentaNYL CITRATE 100 MCG/2 ML VL IV ONE (12:12)
[2025-08-01] MEDS: ONDANSETRON HCL 4 MG/2 ML VIAL IV ONE (12:44)
[2025-08-01] MEDS ORDERED: KETOROLAC TROMETH 30 MG/ML 1ML VIAL IV PRN (16:15)
[2025-08-01] MEDS ORDERED: DEXTROSE (50%) 50ML SYRG IV PRN (16:15)
[2025-08-01] MEDS ORDERED: ACETAMINOPHEN 325 MG TAB PO PRN (16:15)
[2025-08-01] MEDS ORDERED: CHOL200043 PO (16:20)
--- NOTE | 2025-08-01 16:27 | DVHHP2 ---
History of Present Illness Reason for Visit: Abdominal pain with vomiting and fever History of Present Illness Sundar Kerr is a 39-year-old male with past medical history of tonsillectomy, pancreatitis, pulmonary hypertension, diabetes, hyperlipidemia, GERD, and gout who presents to the ED with epigastric abdominal pain with fever, nausea, vomiting, and diarrhea times 3 days. Patient reports that his pain is 6/10 cramp-like and constant. Patient also reports that he has a heavy alcohol drinker and drinks about 1-2 bottles of whiskey on the weekends. Patient also reports that the last 5 days he also has a headache. He reports that his fever was 102f at home. Patient also endorsed that he ate spicy foods recently. Patient reports that he walks up and down the stairs with his family at his home. He also reports that his emesis has diarrhea has been yellowish the last 4 days. Patient denies any recent trauma or injury, recent sick contact, recent ingest ion of spoiled food, recent travels, chest pain, shortness of breath, lightheadedness, weakness, dizziness, or urinary symptoms. Cardiovascular: hyperipidemia GI: GERD Rheumatologic: Gout Endocrine: Diabetes Past Medical History Pulmonary hypertension Pancreatitis Past Surgical History: Tonsillectomy Family History: None Smoke: No ALCOHOL: heavy Drugs: None Lives: with Family Domestic Violence: Neg Review of Systems Constitutional: Yes: Fever Gastrointestinal: Nausea, Vomiting, Abdominal Pain, Diarrhea Allergies: Coded Allergies: Morphine (Verified Allergy, Unknown, 08/18/24) pt reports "felt like his throat closed up" has anxiety with taking morphine Exam Vital Signs Vital Signs Date Time Temp Pulse Resp B/P (MAP) Pulse Ox O2 Delivery O2 Flow Rate FiO2 08/01/25 14:01 98.4 80 20 146/80 (102) 94 98.4 General Appearance: Alert, Oriented X3, Cooperative, No acute distress HEENT: Atraumatic, PERRLA, EOMI, Mucous membr. moist/pink Respiratory: Normal air movement Cardiovascular: Normal S1, Normal S2 Abdominal: Soft Extremities: No clubbing, No cyanosis, Normal pulses Neuro: Normal speech, Normal tone, Sensation intact Psych/Mental Status: Mental status NL, Mood NL Labs/Xrays Labs Test 08/01/25 11:20 08/01/25 09:28 Range/Units Stool for White Cells Few White Blood Count 6.6 4.4-10.8 10^3/uL Red Blood Count 5.25 4.5-5.90 10^6/uL Hemoglobin 15.5 13.5-17.5 g/dL Hematocrit 44.9 41.0-53.0 % Mean Corpuscular Volume 85.6 80.0-100.0 fL Mean Corpuscular Hemoglobin 29.6 28.0-32.0 pg Mean Corpuscular Hemoglobin Concent 34.5 32.0-36.0 g/dL Red Cell Distribution Width 14.1 11.8-14.3 % Platelet Count 194 140-450 10^3/uL Mean Platelet Volume 8.4 6.9-10.8 fL Neutrophils (%) (Auto) 67.7 37.0-80.0 % Lymphocytes (%) (Auto) 22.3 10.0-50.0 % Monocytes (%) (Auto) 8.9 0.0-12.0 % Eosinophils (%) (Auto) 0.9 0.0-7.0 % Basophils (%) (Auto) 0.2 0.0-2.0 % Neutrophils # (Auto) 4.5 1.6-8.6 10 ^3/uL Lymphocytes # (Auto) 1.5 0.4-5.4 10 ^3/uL Monocytes # (Auto) 0.6 0-1.3 10 ^3/uL Eosinophils # (Auto) 0.1 0-0.8 10 ^3/uL Basophils # (Auto) 0 0-0.2 10 ^3/uL Nucleated Red Blood Cells 0.0 % Sodium Level 142 136-145 mmol/L Potassium Level 3.4 L 3.5-5.1 mmol/L Chloride Level 103 98-107 mmol/L Carbon Dioxide Level 26 20-31 mmol/L Anion Gap 13 5-15 Blood Urea Nitrogen 9 9-23 mg/dL Creatinine 0.77 0.700-1.30 mg/dL Glomerular Filtration Rate Calc 118 >90 mL/min BUN/Creatinine Ratio 11.7 10.0-20.0 Serum Glucose 106 74-106 mg/dL Lactic Acid Level 1.8 0.4-2.0 mmol/L Calcium Level 9.4 8.7-10.4 mg/dL Total Bilirubin 0.5 0.2-1.0 mg/dL Aspartate Amino Transferase (AST) 30 13-40 U/L Alanine Aminotransferase (ALT) 37 7-40 U/L Alkaline Phosphatase 44 L 46-116 U/L Total Protein 8.1 5.7-8.2 g/dL Albumin 4.7 3.2-4.8 g/dL Lipase 66 H 12-53 U/L Microbiology Date/Time Source Procedure Growth Status 08/01/25 11:20 Stool Stool Culture - Preliminary Resulted 08/01/25 11:20 Stool Shiga Toxin I & II - Final Resulted Exam: CT CT AB PEL WO CON-NO ORAL OR IV History: n/v/d Comparison Study: Report from a prior US ABDOMEN LIMITED on DOS: 08/17/24 Technique: Multidetector spiral CT of the abdomen and pelvis was performed from lung bases to pubic symphysis. Imaging was performed without intravenous contrast. Coronal and sagittal multiplanar reformats were obtained from the axial data set by the technologist. Radiation Dose : 1. Abdomen/Pelvis: CTDIvol 27.88 mGy, DLP 1539 mGy*cm. Findings: Evaluation of vasculature and solid organs is limited due to lack of intravenous contrast use. Lung Bases: Lung bases are clear. Visualized portions of the heart and pericardium are unremarkable. Liver: The liver is enlarged measuring 20 cm in length. Diffusely hypoattenuating liver parenchyma consistent with hepatic steatosis. Gallbladder and Biliary Tree: The gallbladder is unremarkable. No intrahepatic or extrahepatic biliary ductal dilatation. Spleen: Unremarkable Pancreas: The pancreas is grossly unremarkable. Adrenal Glands: Unremarkable Kidneys: Kidneys are unremarkable without calculi or hydronephrosis. GI tract: The stomach is grossly normal in appearance. Fluid-filled small bowel loops without a transition point. There is colonic diverticulosis without diverticulitis. The appendix is not visualized, however no inflammatory changes in the right lower quadrant to suggest acute appendicitis. Peritoneum/mesentery/retroperitoneum. No evidence of free intraperitoneal air. No ascites. No evidence of suspicious lymphadenopathy. Abdominal Wall: There is a fat containing umbilical hernia. Vasculature: The visualized abdominal aorta is normal in size and caliber. Evaluation of abdominal and pelvic vessels is limited due to lack of intravenous contrast. Urinary Bladder: Grossly unremarkable for degree of distention. Pelvic Organs: Unremarkable Musculoskeletal: No aggressive focal bony lesions, acute fractures or dislocation. IMPRESSION: 1. Fluid-filled small bowel loops without a transition point. Findings are compatible with enteritis. 2. Hepatomegaly and hepatic steatosis. 3. Colonic diverticulosis without diverticulitis. SEPSIS Sepsis Screen Date sepsis recognized/suspect: Aug 01, 2025 Time Sepsis recognized/suspect: 914 Recent Procedure: No On Antibiotic Therapy: No Respiratory Rate >20: No Heart Rate >90: No Temp<36 C (96.8 F) or >38.3 C: No SBP <90 or MAP <65 mmHG: No New Acute Mental Status Change: No Is the patient on CPAP, BIPAP,: No Physician Orders Ct Ab Pel Wo Con-No Oral Or Iv (08/01/25 09:13) Ova & Parasite Exam (08/01/25 09:13) Stool Bacterial Culture (08/01/25 09:13) Ciprofloxacin 400mg/200ml (Cipro Iv) (08/01/25 16:15) Vital Signs Date Time Temp Pulse Resp B/P (MAP) Pulse Ox O2 Delivery O2 Flow Rate FiO2 08/01/25 14:01 98.4 80 20 146/80 (102) 94 98.4 08/01/25 12:12 153/75 08/01/25 12:00 82 11 153/75 (101) 97 08/01/25 10:17 98.9 81 16 129/55 (79) 98 98.9 08/01/25 09:13 97.6 87 18 161/105 96 97.6 Laboratory Tests Test 08/01/25 09:28 Lactic Acid Level 1.8 mmol/L (0.4-2.0) White Blood Count 6.6 10^3/uL (4.4-10.8) Medications Medications Dose Ordered Sig/Karan Route Start Time Stop Time Status Last Admin Dose Admin Fentanyl Citrate 100 mcg ONCE ONCE IV 08/01/25 11:45 08/01/25 11:46 DC 08/01/25 12:12 100 MCG Ondansetron HCl 4 mg ONCE ONCE IV 08/01/25 12:45 08/01/25 12:46 DC 08/01/25 12:44 4 MG Assessment/Plan Assessment/Plan Assessment Intractable abdominal pain with nausea, vomiting, and diarrhea likely due to enteritis Hepatomegaly and hepatic steatosis Colonic diverticulosis without diverticulitis Pyrexia Hypokalemia Morbid obesity Alcohol use History of pulmonary hypertension History of diabetes History of hyperlipidemia History of GERD History of gout History of pancreatitis History of tonsillectomy Plan Admit to tele monitor for DTs ARACELI Multivitamins Folic acid Thiamine Antiemetics Pain management Antipyretics Antihypertensives Replete lytes Open parasite Stool bacterial culture IV antibiotics-ciprofloxacin Lipase CT abdomen and pelvis Lactic noted UA UDS Blood culture Hemoglobin A1c ISS and Accu-Cheks IV fluids Diet Home medications reconciled DVT prophylaxis-SCDs PUD prophylaxis-PPIs Discussed plan of care with patient and nurse ARACELI 2 points Counseled patient on cessation of alcohol use Counseled patient on lifestyle modifications, diet, and exercise [id number] Preventive counseling healthy eating habits, physical activity, and regular checkups Plan discussed with: Patient Date of Service: Aug 01, 2025 Billing Provider: HITESH CONN Common Visit Codes: [id number] INP/OBS CARE (HIGH) Secondary Visit Codes: [id number] COUNSELING IND HITESH CONN Aug 01, 2025 16:27
[2025-08-01] MEDS: CIPROFLOXACIN 400MG/200ML 200 ML IV ONE (16:29)
[2025-08-01] MEDS: SODIUM CHLORIDE 0.9% 1,000 ML IV SCH (17:00)
--- NOTE | 2025-08-01 17:09 | DVH ---
CHEST RADIOGRAPH Indication: r/o pna Technique: Frontal and lateral view of the chest was obtained Comparison: XY CHEST PORTABLE on DOS: 08/17/24, CHEST PORTABLE on DOS: 08/23/21 FINDINGS: Lines and Tubes: None Lungs: Congestion Pleura: No effusion. No pneumothorax. Cardiomediastinal contours: Unremarkable Bones: Unremarkable IMPRESSION: Increased interstital prominence. This may represent pulmonary vascular congestion and/or viral pneum onia. Clinical correlation advised.
[2025-08-01] MEDS: POTASSIUM CHL 20 Meq TABLET PO ONE (17:35)
[2025-08-01] MEDS: MULTIPLE VITAMIN TAB PO ONE (17:36)
[2025-08-01] MEDS: FOLIC ACID 1 MG TAB PO ONE (17:36)
[2025-08-01] MEDS: THIAMINE HCL 100 MG TAB PO ONE (17:36)
[2025-08-01] MEDS: ACCU-CHEK COMFORT CURVE STRIP VI SCH (17:36)
[2025-08-01] MEDS: InsuLIN REG 1unit/0.01ml Soln (100units/ml) SC SCH (17:39)
[2025-08-01 21:07] LABS: Urine Protein, UAD Negative (Negative)
[2025-08-01 21:24] LABS: Amphetamine Screen, Urine Neg (NEGATIVE); Barbiturate Scree,Urine Neg (NEGATIVE); Benzodiazephine Screen, Urine Neg (NEGATIVE); Cannabinoid Screen, Urine Neg (NEGATIVE); Cocaine Screen, Urine Neg (NEGATIVE); Opiate Scree,Urine Neg (NEGATIVE); Phencyclidine Screen, Urine Neg (NEGATIVE)
[2025-08-01] MEDS: ALPRAZolam 0.5 MG TAB PO SCH (22:42)
[2025-08-01 23:58] VITALS: BP 128/75; PULSE 83; RESP 19; TEMP 97.3; O2SAT 95
[2025-08-02] VITALS (8 sets, daily range): BP systolic 103–143; BP diastolic 61–99; PULSE 57–85; RESP 16–20; TEMP 97.3–97.8; O2SAT 95–99
[2025-08-02] MEDS ORDERED: CIPROFLOXACIN 400MG/200ML 200 ML IV SCH
[2025-08-02] MEDS: KETOROLAC TROMETH 30 MG/ML 1ML VIAL IV PRN (03:43)
[2025-08-02 05:09] LABS: Hematocrit 42.2 % (41.0-53.0); Hemoglobin 14.6 g/dL (13.5-17.5); Mean Corpuscular Hemoglobin 29.8 pg (28.0-32.0); Mean Corpuscular Volume 86.1 fL (80.0-100.0); Nucleated Red Blood Cells % 0.2 %
[2025-08-02 05:25] LABS: Alanine Aminotransferase 27 U/L (7-40); Albumin 4.2 g/dL (3.2-4.8); Anion Gap 12 (5-15); BUN/Creatinine Ratio 12.2 (10.0-20.0); Blood Urea Nitrogen 10 mg/dL (9-23); Calcium 8.8 mg/dL (8.7-10.4); Carbon Dioxide 24 mmol/L (20-31); Chloride 105 mmol/L (98-107); Sodium 141 mmol/L (136-145); Total Protein 7.4 g/dL (5.7-8.2)
[2025-08-02 05:26] LABS: Bilirubin, Total 0.7 mg/dL (0.2-1.0)
[2025-08-02 05:34] LABS: Alkaline Phosphatase 28 U/L (46-116); Glucose 116 mg/dL (74-106); Potassium 3.1 mmol/L (3.5-5.1)
[2025-08-02] MEDS ORDERED: CHOLECALCIFEROL PO SCH (10:00)
[2025-08-02] MEDS: CHLORTHALIDONE 50 MG PO SCH (10:00)
[2025-08-02] MEDS: MULTIPLE VITAMINS W/ MINERALS TAB PO SCH (10:00)
[2025-08-02] MEDS: FENOFIBRATE 160MG TABLET PO SCH (10:00)
[2025-08-02] MEDS: ALLOPURINOL 100 MG TAB PO SCH (12:54)
[2025-08-02] MEDS: PANTOPRAZOLE 40 MG/10 ML VIAL INJ IV SCH (12:54)
[2025-08-02] MEDS: ASPirin-EC 325mg tab PO SCH (12:54)
[2025-08-02] MEDS: CHOLECALCIFEROL (VITD3) 1,000UNIT=25mCg TAB PO SCH (12:54)
[2025-08-02] MEDS: ONDANSETRON HCL 4 MG/2 ML VIAL IV PRN (12:55)
[2025-08-02] MEDS: FOLIC ACID 1 MG TAB PO SCH (12:55)
[2025-08-02] MEDS: ENALAPRIL MALEATE 10 MG TAB PO SCH (12:55)
[2025-08-02] MEDS: MULTIPLE VITAMIN TAB PO SCH (13:06)
[2025-08-02] MEDS: THIAMINE HCL 100 MG TAB PO SCH (13:06)
--- NOTE | 2025-08-02 14:58 | DVHPN2 ---
Subjective I am assuming the care of the patient from today onwards who was under the care of the hospitalist team. Patient is currently on CPAP machine. Changes from previous H/P or p: No Changes Gastrointestinal: Nausea, Vomiting, Abdominal Pain, Diarrhea Objective Vitals Vital Signs Date Time Temp Pulse Resp B/P (MAP) Pulse Ox O2 Delivery O2 Flow Rate FiO2 08/02/25 12:55 140/99 08/02/25 12:40 97.5 71 19 98 97.5 08/02/25 01:53 Nasal Cannula* 4 36 Intake/Output Intake and Output 08/02/25 07:00 Intake Total 1240 ml Balance 1240 ml Intake Oral 240 ml IV Total 1000 ml # Voids 2 # Bowel Movements 2 Exam HEENT pupils are reactive Neck is supple CV is S1-S2 regular rate and rhythm Diminished breath sounds bases GI positive bowel sounds Extremity no edema 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 Medications Current Medications Medications Dose Ordered Sig/Karan Route Start Time Stop Time Status Last Admin Dose Admin Pantoprazole Sodium 40 mg DAILY IV 08/02/25 10:00 08/02/25 12:54 40 MG Sodium Chloride 1,000 ml @ 120 mls/hr Q8H20M IV 08/01/25 16:15 08/02/25 09:24 120 MLS/HR Ondansetron HCl 4 mg Q4HP PRN IV 08/01/25 16:15 08/02/25 12:55 4 MG Acetaminophen 650 mg Q6HP PRN PO 08/01/25 16:15 Ketorolac Tromethamine 30 mg Q6HPRN PRN IV 08/01/25 16:15 08/06/25 16:14 08/02/25 12:49 30 MG Ketorolac Tromethamine 15 mg Q6HPRN PRN IV 08/01/25 16:15 08/06/25 16:14 Diagnostic Test (Pha) 1 strip ACHS 08/01/25 17:00 08/02/25 11:30 1 STRIP Insulin Human Regular ACHS SC 08/01/25 17:00 Dextrose 50 ml UD PRN IV 08/01/25 16:15 Allopurinol 100 mg DAILY PO 08/02/25 10:00 08/02/25 12:54 100 MG Alprazolam 0.5 mg BIDPRN PO 08/01/25 22:00 08/02/25 12:56 0.5 MG Enalapril Maleate 20 mg DAILY PO 08/02/25 10:00 08/02/25 12:55 20 MG Multivitamins/ Minerals 1 tab DAILY PO 08/02/25 10:00 08/02/25 10:00 1 TAB Aspirin 325 mg DAILY PO 08/02/25 10:00 08/02/25 12:54 325 MG Patient Own Medication 50 mg DAILY PO 08/02/25 10:00 Cholecalciferol 2,000 unit DAILY PO 08/02/25 10:00 08/02/25 12:54 2,000 UNIT Patient Own Medication 160 mg DAILY PO 08/02/25 10:00 Thiamine HCl 100 mg DAILY PO 08/02/25 10:00 08/02/25 13:06 100 MG Folic Acid 1 mg DAILY PO 08/02/25 10:00 08/02/25 12:55 1 MG Multivitamins 1 tab DAILY PO 08/02/25 10:00 08/02/25 13:06 1 TAB Ceftriaxone Sodium 50 ml @ 100 mls/hr DAILY@09 IV 08/02/25 09:00 08/02/25 09:17 100 MLS/HR Laboratory Results Laboratory Tests 08/02/25 04:48 Chemistry Test 08/02/25 04:48 Albumin 4.2 g/dL (3.2-4.8) Calcium Level 8.8 mg/dL (8.7-10.4) Total Protein 7.4 g/dL (5.7-8.2) LFT Test 08/02/25 04:48 Alanine Aminotransferase (ALT) 27 U/L (7-40) Alkaline Phosphatase 28 U/L (46-116) L Aspartate Amino Transferase (AST) 22 U/L (13-40) Total Bilirubin 0.7 mg/dL (0.2-1.0) Urinalysis Test 08/01/25 20:57 Urine Color Light-yellow (Yellow) Urine Clarity Turbid (Clear) H Urine pH 6.0 (5.0-9.0) Urine Specific [place] 1.011 (1.001-1.035) Urine Protein Negative (Negative) Urine Ketones Negative (Negative) Urine Blood Negative /uL (Negative) Urine Nitrite Negative (Negative) Urine Bilirubin Negative (Negative) Urine Urobilinogen Normal mg/dL (Negative) Urine Leukocyte Esterase Negative /uL (Negative) Urine RBC 2 /hpf (0 - 3) Urine Microscopic WBC 1 /HPF (0-3) Urine Squamous Epithelial Cells Few /hpf (<5) Urine Bacteria Few /hpf (None Seen) H Urine Glucose Normal mg/dL (Normal) Microbiology Microbiology Date/Time Source Procedure Growth Status 08/01/25 11:20 Stool Stool Culture - Preliminary Resulted 08/01/25 11:20 Stool Shiga Toxin I & II - Final Resulted Assessment/Plan Assessment/Plan 39-year-old male with a known history of morbid obesity class three, pulmonary hypertension, sleep apnea currently on BiPAP machine at home, diabetes mellitus type 2, dyslipidemia, GERD, history of gout presented to the hospital with a nausea and vomiting and diarrhea found to have 1. Nausea and vomiting diarrhea suspect gastroenteritis 3. Hepatic steatosis 3. Pulmonary hypertension 4. Diabetes mellitus type 2 currently on Ozempic 5. Dyslipidemia 6. GERD 7. History of gout 8. Obesity hypoventilation syndrome currently on BiPAP machine at home 9. Morbid obesity class III -diet as tolerated, Accu-Cheks q.a.c. and HS low-dose sliding scale, plan of care discussed with the patient's patient's at bedside. Plan discussed with: Patient, Spouse Date of Service: Aug 02, 2025 Billing Provider: GREGOR DARBY MD Common Visit Codes: [id number] INP/OBS CARE(MOD) GREGOR DARBY MD Aug 02, 2025 14:58
[2025-08-03] VITALS (8 sets, daily range): BP systolic 103–123; BP diastolic 61–65; PULSE 56–80; RESP 16–19; TEMP 97.5–99.2; O2SAT 92–100
--- NOTE | 2025-08-03 15:35 | DVHPN2 ---
Subjective Patient is tolerating diet but still complaining of lot of diarrhea. Changes from previous H/P or p: No Changes Gastrointestinal: Nausea, Vomiting, Abdominal Pain, Diarrhea Objective Vitals Vital Signs Date Time Temp Pulse Resp B/P (MAP) Pulse Ox O2 Delivery O2 Flow Rate FiO2 08/03/25 12:51 97.7 63 18 110/64 (79) 100 97.7 08/02/25 20:00 Nasal Cannula* 4 36 Intake/Output Intake and Output 08/03/25 07:00 Intake Total 1000 ml Output Total 6 ml Balance 994 ml Intake Oral 1000 ml Output Urine Total 3 ml Stool Total 3 ml Exam HEENT pupils are reactive Neck is supple CV is S1-S2 regular rate and rhythm Diminished breath sounds bases GI positive bowel sounds Extremity no edema 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 motor 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 Medications Current Medications Medications Dose Ordered Sig/Karan Route Start Time Stop Time Status Last Admin Dose Admin Pantoprazole Sodium 40 mg DAILY IV 08/02/25 10:00 08/03/25 09:50 40 MG Sodium Chloride 1,000 ml @ 120 mls/hr Q8H20M IV 08/01/25 16:15 08/02/25 18:15 120 MLS/HR Ondansetron HCl 4 mg Q4HP PRN IV 08/01/25 16:15 08/02/25 12:55 4 MG Acetaminophen 650 mg Q6HP PRN PO 08/01/25 16:15 Ketorolac Tromethamine 30 mg Q6HPRN PRN IV 08/01/25 16:15 08/06/25 16:14 08/03/25 09:50 30 MG Ketorolac Tromethamine 15 mg Q6HPRN PRN IV 08/01/25 16:15 08/06/25 16:14 Diagnostic Test (Pha) 1 strip ACHS 08/01/25 17:00 08/03/25 06:27 1 STRIP Insulin Human Regular ACHS SC 08/01/25 17:00 Dextrose 50 ml UD PRN IV 08/01/25 16:15 Allopurinol 100 mg DAILY PO 08/02/25 10:00 08/03/25 09:49 100 MG Alprazolam 0.5 mg BIDPRN PO 08/01/25 22:00 08/03/25 09:49 0.5 MG Enalapril Maleate 20 mg DAILY PO 08/02/25 10:00 08/02/25 12:55 20 MG Multivitamins/ Minerals 1 tab DAILY PO 08/02/25 10:00 08/02/25 10:00 1 TAB Aspirin 325 mg DAILY PO 08/02/25 10:00 08/03/25 09:49 325 MG Patient Own Medication 50 mg DAILY PO 08/02/25 10:00 Cholecalciferol 2,000 unit DAILY PO 08/02/25 10:00 08/03/25 09:49 2,000 UNIT Patient Own Medication 160 mg DAILY PO 08/02/25 10:00 Thiamine HCl 100 mg DAILY PO 08/02/25 10:00 08/03/25 09:49 100 MG Folic Acid 1 mg DAILY PO 08/02/25 10:00 08/03/25 09:49 1 MG Multivitamins 1 tab DAILY PO 08/02/25 10:00 08/03/25 09:49 1 TAB Ceftriaxone Sodium 50 ml @ 100 mls/hr DAILY@09 IV 08/02/25 09:00 08/03/25 09:50 100 MLS/HR Laboratory Results Laboratory Tests 08/02/25 04:48 Urinalysis Test 08/01/25 20:57 Urine Color Light-yellow (Yellow) Urine Clarity Turbid (Clear) H Urine pH 6.0 (5.0-9.0) Urine Specific [place] 1.011 (1.001-1.035) Urine Protein Negative (Negative) Urine Ketones Negative (Negative) Urine Blood Negative /uL (Negative) Urine Nitrite Negative (Negative) Urine Bilirubin Negative (Negative) Urine Urobilinogen Normal mg/dL (Negative) Urine Leukocyte Esterase Negative /uL (Negative) Urine RBC 2 /hpf (0 - 3) Urine Microscopic WBC 1 /HPF (0-3) Urine Squamous Epithelial Cells Few /hpf (<5) Urine Bacteria Few /hpf (None Seen) H Urine Glucose Normal mg/dL (Normal) Microbiology Microbiology Date/Time Source Procedure Growth Status 08/01/25 17:00 Blood Blood Culture - Preliminary NO GROWTH AFTER 24 HOURS OF INCUBATION. Resulted 08/01/25 11:20 Stool Stool Culture - Preliminary Resulted 08/01/25 11:20 Stool Shiga Toxin I & II - Final Resulted Assessment/Plan Assessment/Plan 39-year-old male with a known history of morbid obesity class three, pulmonary hypertension, sleep apnea currently on BiPAP machine at home, diabetes mellitus type 2, dyslipidemia, GERD, history of gout presented to the hospital with a nausea and vomiting and diarrhea found to have 1. Nausea and vomiting diarrhea suspect gastroenteritis 3. Hepatic steatosis 3. Pulmonary hypertension 4. Diabetes mellitus type 2 currently on Ozempic 5. Dyslipidemia 6. GERD 7. History of gout 8. Obesity hypoventilation syndrome currently on BiPAP machine at home 9. Morbid obesity class III -check stool for C diff, add Questran. -diet as tolerated, Accu-Cheks q.a.c. and HS low-dose sliding scale, plan of care discussed with the patient's patient's at bedside. Plan discussed with: Patient My Orders Orders - GREGOR DARBY MD Procedure Category Date Status Time Stool Bacterial FORTINO 10//25 In Process Culture 14:05 Clostridium Difficile FORTINO 10/5/25 In Process Toxin 14:05 Date of Service: Aug 03, 2025 Billing Provider: GREGOR DARBY MD Common Visit Codes: [id number] INP/OBS CARE(MOD) GREGOR DARBY MD Aug 03, 2025 15:35
[2025-08-03] MEDS: CHOLESTYRAMINE 4 GM POWDER PO SCH (22:32)
[2025-08-04] VITALS (8 sets, daily range): BP systolic 112–129; BP diastolic 62–83; PULSE 53–74; RESP 14–20; TEMP 96.6–98; O2SAT 95–100
--- NOTE | 2025-08-04 16:30 | DVHPN2 ---
Subjective Patient is tolerating diet but still complaining of lot of diarrhea. Stool for C diff is pending. 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 Medications Current Medications Medications Dose Ordered Sig/Karan Route Start Time Stop Time Status Last Admin Dose Admin Pantoprazole Sodium 40 mg DAILY IV 08/02/25 10:00 08/04/25 10:28 40 MG Sodium Chloride 1,000 ml @ 120 mls/hr Q8H20M IV 08/01/25 16:15 08/04/25 10:35 120 MLS/HR Ondansetron HCl 4 mg Q4HP PRN IV 08/01/25 16:15 08/02/25 12:55 4 MG Acetaminophen 650 mg Q6HP PRN PO 08/01/25 16:15 Ketorolac Tromethamine 30 mg Q6HPRN PRN IV 08/01/25 16:15 08/06/25 16:14 08/03/25 22:31 30 MG Ketorolac Tromethamine 15 mg Q6HPRN PRN IV 08/01/25 16:15 08/06/25 16:14 Diagnostic Test (Pha) 1 strip ACHS 08/01/25 17:00 08/04/25 12:29 1 STRIP Insulin Human Regular ACHS SC 08/01/25 17:00 Dextrose 50 ml UD PRN IV 08/01/25 16:15 Allopurinol 100 mg DAILY PO 08/02/25 10:00 08/03/25 09:49 100 MG Alprazolam 0.5 mg BIDPRN PO 08/01/25 22:00 08/03/25 22:04 0.5 MG Enalapril Maleate 20 mg DAILY PO 08/02/25 10:00 08/02/25 12:55 20 MG Multivitamins/ Minerals 1 tab DAILY PO 08/02/25 10:00 08/03/25 10:00 1 TAB Aspirin 325 mg DAILY PO 08/02/25 10:00 08/03/25 09:49 325 MG Patient Own Medication 50 mg DAILY PO 08/02/25 10:00 Cholecalciferol 2,000 unit DAILY PO 08/02/25 10:00 08/03/25 09:49 2,000 UNIT Patient Own Medication 160 mg DAILY PO 08/02/25 10:00 Thiamine HCl 100 mg DAILY PO 08/02/25 10:00 08/04/25 10:30 100 MG Folic Acid 1 mg DAILY PO 08/02/25 10:00 08/04/25 10:28 1 MG Multivitamins 1 tab DAILY PO 08/02/25 10:00 08/03/25 09:49 1 TAB Ceftriaxone Sodium 50 ml @ 100 mls/hr DAILY@09 IV 08/02/25 09:00 08/04/25 08:51 100 MLS/HR Cholestyramine Resin 4 gm Q12HR@11,23 PO 08/03/25 23:00 08/03/25 22:32 4 GM Laboratory Results Laboratory Tests 08/02/25 04:48 Urinalysis Test 08/01/25 20:57 Urine Color Light-yellow (Yellow) Urine Clarity Turbid (Clear) H Urine pH 6.0 (5.0-9.0) Urine Specific [place] 1.011 (1.001-1.035) Urine Protein Negative (Negative) Urine Ketones Negative (Negative) Urine Blood Negative /uL (Negative) Urine Nitrite Negative (Negative) Urine Bilirubin Negative (Negative) Urine Urobilinogen Normal mg/dL (Negative) Urine Leukocyte Esterase Negative /uL (Negative) Urine RBC 2 /hpf (0 - 3) Urine Microscopic WBC 1 /HPF (0-3) Urine Squamous Epithelial Cells Few /hpf (<5) Urine Bacteria Few /hpf (None Seen) H Urine Glucose Normal mg/dL (Normal) Microbiology Microbiology Date/Time Source Procedure Growth Status 08/03/25 14:05 Stool Stool Culture - Preliminary Resulted 08/03/25 14:05 Stool Shiga Toxin I & II - Final Resulted 08/03/25 14:05 Stool Clostridium difficile Toxin Assay Pending Resulted 08/01/25 17:00 Blood Blood Culture - Preliminary NO GROWTH AFTER 48 HOURS OF INCUBATION. Resulted Assessment/Plan Assessment/Plan 39-year-old male with a known history of morbid obesity class three, pulmonary hypertension, sleep apnea currently on BiPAP machine at home, diabetes mellitus type 2, dyslipidemia, GERD, history of gout presented to the hospital with a nausea and vomiting and diarrhea found to have 1. Nausea and vomiting diarrhea suspect gastroenteritis 3. Hepatic steatosis 3. Pulmonary hypertension 4. Diabetes mellitus type 2 currently on Ozempic 5. Dyslipidemia 6. GERD 7. History of gout 8. Obesity hypoventilation syndrome currently on BiPAP machine at home 9. Morbid obesity class III -check stool for C diff, add Questran. -diet as tolerated, Accu-Cheks q.a.c. and HS low-dose sliding scale, plan of care discussed with the patient's at bedside. Plan discussed with: Patient Date of Service: Aug 04, 2025 Billing Provider: GREGOR DARBY MD Common Visit Codes: [id number] INP/OBS CARE(MOD) GREGOR DARBY MD Aug 04, 2025 16:30
[2025-08-05] VITALS (7 sets, daily range): BP systolic 112–130; BP diastolic 68–81; PULSE 53–64; RESP 18–20; TEMP 96.2–98.1; O2SAT 96–98
[2025-08-05 13:37] LABS: Hematocrit 38.6 % (41.0-53.0); Hemoglobin 13.2 g/dL (13.5-17.5); Mean Corpuscular Hemoglobin 29.7 pg (28.0-32.0); Mean Corpuscular Volume 86.6 fL (80.0-100.0); Nucleated Red Blood Cells % 0.1 %
[2025-08-05 13:48] LABS: Sodium 145 mmol/L (136-145)
[2025-08-05 13:49] LABS: Anion Gap 9 (5-15); Carbon Dioxide 29 mmol/L (20-31)
[2025-08-05 13:50] LABS: Calcium 8.9 mg/dL (8.7-10.4)
[2025-08-05 13:54] LABS: BUN/Creatinine Ratio 15.3 (10.0-20.0); Blood Urea Nitrogen 11 mg/dL (9-23); Glucose 98 mg/dL (74-106)
[2025-08-05 13:55] LABS: Magnesium 1.7 mg/dL (1.6-2.6)
[2025-08-05 13:59] LABS: Chloride 107 mmol/L (98-107); Potassium 3.5 mmol/L (3.5-5.1)
[2025-08-05] MEDS: MAGNESIUM OXIDE 400 MG TAB PO ONE (15:00)
--- NOTE | 2025-08-06 14:32 | DVHDS2 ---
Discharge Summary Date of Admission Aug 01, 2025 at 16:24 Date of Discharge: Aug 05, 2025 Labs/Diagnostic Data: Laboratory Results Test 08/05/25 13:21 08/05/25 12:01 08/02/25 04:48 08/01/25 20:58 White Blood Count 3.9 10^3/uL (4.4-10.8) Red Blood Count 4.46 10^6/uL (4.5-5.90) Hemoglobin 13.2 g/dL (13.5-17.5) Hematocrit 38.6 % (41.0-53.0) Mean Corpuscular Volume 86.6 fL (80.0-100.0) Mean Corpuscular Hemoglobin 29.7 pg (28.0-32.0) Mean Corpuscular Hemoglobin Concent 34.3 g/dL (32.0-36.0) Red Cell Distribution Width 13.6 % (11.8-14.3) Platelet Count 190 10^3/uL (140-450) Mean Platelet Volume 8.5 fL (6.9-10.8) Neutrophils (%) (Auto) 56.3 % (37.0-80.0) Lymphocytes (%) (Auto) 35.3 % (10.0-50.0) Monocytes (%) (Auto) 6.4 % (0.0-12.0) Eosinophils (%) (Auto) 1.4 % (0.0-7.0) Basophils (%) (Auto) 0.6 % (0.0-2.0) Neutrophils # (Auto) 2.2 10 ^3/uL (1.6-8.6) Lymphocytes # (Auto) 1.4 10 ^3/uL (0.4-5.4) Monocytes # (Auto) 0.2 10 ^3/uL (0-1.3) Eosinophils # (Auto) 0.1 10 ^3/uL (0-0.8) Basophils # (Auto) 0 10 ^3/uL (0-0.2) Nucleated Red Blood Cells 0.1 % Sodium Level 145 mmol/L (136-145) Potassium Level 3.5 mmol/L (3.5-5.1) Chloride Level 107 mmol/L (98-107) Carbon Dioxide Level 29 mmol/L (20-31) Anion Gap 9 (5-15) Blood Urea Nitrogen 11 mg/dL (9-23) Creatinine 0.72 mg/dL (0.700-1.30) Glomerular Filtration Rate Calc 120 mL/min (>90) BUN/Creatinine Ratio 15.3 (10.0-20.0) Serum Glucose 98 mg/dL (74-106) Calcium Level 8.9 mg/dL (8.7-10.4) Magnesium Level 1.7 mg/dL (1.6-2.6) POC Glucose 79 mg/dl (70-106) Total Bilirubin 0.7 mg/dL (0.2-1.0) Aspartate Amino Transferase (AST) 22 U/L (13-40) Alanine Aminotransferase (ALT) 27 U/L (7-40) Alkaline Phosphatase 28 U/L (46-116) Total Protein 7.4 g/dL (5.7-8.2) Albumin 4.2 g/dL (3.2-4.8) Urine Opiates Screen Neg (NEGATIVE) Urine Fentanyl Screen Neg (NEGATIVE) Urine Barbiturates Screen Neg (NEGATIVE) Urine Phencyclidine Screen Neg (NEGATIVE) Urine Amphetamines Screen Neg (NEGATIVE) Urine Benzodiazepines Screen Neg (NEGATIVE) Urine Cocaine Screen Neg (NEGATIVE) Urine Cannabinoids Screen Neg (NEGATIVE) Test 08/01/25 20:57 08/01/25 11:20 08/01/25 09:28 Urine Color Light-yellow (Yellow) Urine Clarity Turbid (Clear) Urine pH 6.0 (5.0-9.0) Urine Specific [place] 1.011 (1.001-1.035) Urine Protein Negative (Negative) Urine Ketones Negative (Negative) Urine Blood Negative /uL (Negative) Urine Nitrite Negative (Negative) Urine Bilirubin Negative (Negative) Urine Urobilinogen Normal mg/dL (Negative) Urine Leukocyte Esterase Negative /uL (Negative) Urine RBC 2 /hpf (0 - 3) Urine Microscopic WBC 1 /HPF (0-3) Urine Squamous Epithelial Cells Few /hpf (<5) Urine Bacteria Few /hpf (None Seen) Urine Glucose Normal mg/dL (Normal) Stool for White Cells Few Hemoglobin A1c 5.7 % A1C (<5.7) Lactic Acid Level 1.8 mmol/L (0.4-2.0) Lipase 66 U/L (12-53) Other Laboratory Tests 08/05/25 13:21 Brief Hx & Hospital Course: 39-year-old male with a known history of morbid obesity class III, pulmonary hypertension, sleep apnea currently on BiPAP machine at home, diabetes mellitus type 2, dyslipidemia, GERD, history of gout presented to the hospital with a nausea and vomiting and diarrhea found to have gastroenteritis. Patient also has been hepatic steatosis. Patient is currently has a known history of diabetes mellitus type 2 currently on Ozempic. Patient's hospital course was uneventful patient is being discharged under stable condition. Condition at Discharge: Stable Final Diagnosis/Problems List 39-year-old male with a known history of morbid obesity class three, pulmonary hypertension, sleep apnea currently on BiPAP machine at home, diabetes mellitus type 2, dyslipidemia, GERD, history of gout presented to the hospital with a nausea and vomiting and diarrhea found to have 1. Nausea and vomiting diarrhea suspect gastroenteritis 3. Hepatic steatosis 3. Pulmonary hypertension 4. Diabetes mellitus type 2 currently on Ozempic 5. Dyslipidemia 6. GERD 7. History of gout 8. Obesity hypoventilation syndrome currently on BiPAP machine at home 9. Morbid obesity class III Discharge Disposition: Home SNF Discharge Will this Physician continue t: No Discharge Instruct/Medications Diet: Consistent carbohydrate Activity: No Restrictions, As Tolerated Follow Up/Referral: FOLLOW UP WITH PCP 7-10 DAYS Medications: RESUME HOME MEDICATIONS Scheduled Allopurinol (Allopurinol), 100 MG PO DAILY, (Reported) Alprazolam (Xanax), 1 TAB PO BIDPRN, (Reported) Aspirin Buffered (Mahesh Carb-Mag (Aspirin 325 mg), 1 TAB PO DAILY, (Reported) Chlorthalidone (Chlorthalidone), 50 MG PO DAILY, (Reported) Cholecalciferol (Vitamin D3), 1 TAB PO DAILY, (Reported) Cholecalciferol (D3 Super Strength), 1 CAP PO DAILY, (Reported) Enalapril Maleate (Vasotec Tablet), 20 MG PO DAILY, (Reported) Fenofibrate Micronized (Fenofibrate), 160 MG PO DAILY, (Reported) Magnesium Oxide (Magnesium Oxide), 1 TAB PO DAILY, (Reported) Multiple Vitamins W/ Minerals (Mvi W/ Minerals Tab), 1 TAB PO DAILY, (Reported) Omeprazole (Cvs Omeprazole), 40 MG PO DAILY, (Reported) Pantoprazole Sodium Sesquihydr (Pantoprazole Sodium), 40 MG PO DAILY Potassium Chloride (Potassium Chloride ER), 8 MEQ PO DAILY, (Reported) Potassium Chloride (Potassium Chloride Cr), 10 MEQ PO DAILY Sucralfate (Sucralfate), 1 GM PO BID Miscellaneous Medications Semaglutide (Ozempic), 1 MG SC, (Reported) Discharge Statement: "Patient was advised to return to the ER or call 911 if any headaches, dizziness, shortness of breath, chest pain, abdominal pain, bleeding, fevers, or worsening of medical condition. Patient was counseled about treatment plan, medications, possible side effects, patientverbalized understanding. All questions were answered to the best of my ability. This discharge took greater then 30 minutes in planning, reviewing documentation, counseling the patient, and discussing with other team members." ASSESSMENT ASSESSMENT Assessment DIARRHEA-RESOLVED Date of Service: Aug 05, 2025 Billing Provider: GREGOR DARBY MD Common Visit Codes: 14221-NCR/OBS DISCH DAY >30min GREGOR DARBY MD Aug 06, 2025 14:32
== END 2025-08-05 16:30 | disposition home or self-care (01) | DRG 248 ==
LOC: ER 09:13 → OVERFLOW 16:24 → TELE-EAST 23:58
PROVIDERS: ADMIT Internal Medicine; ATTEND Internal Medicine
DX: A04.9 Bacterial intestinal infection, unspecified (principal); I27.20 Pulmonary hypertension, unspecified; E66.2 Morbid (severe) obesity with alveolar hypoventilation; Z68.44 Body mass index [BMI] 60.0-69.9, adult; J96.10 Chronic respiratory failure, unspecified whether with hypoxia or hypercapnia; E87.6 Hypokalemia; K21.9 Gastro-esophageal reflux disease without esophagitis; K76.0 Fatty (change of) liver, not elsewhere classified; K57.30 Diverticulosis of large intestine without perforation or abscess without bleeding; E66.813 Obesity, class 3; E11.9 Type 2 diabetes mellitus without complications; E78.5 Hyperlipidemia, unspecified; I10 Essential (primary) hypertension; Z87.442 Personal history of urinary calculi; Z88.5 Allergy status to narcotic agent; Z79.899 Other long term (current) drug therapy
CPT/HCPCS: 36415; 71046; 74176; 80048; 80053; 80307; 81001; 82962; 83036; 83605; 83690; 83735; 85025; 85048; 87040; 87045; 87177; 87427; 87493; G0378; J1885; J2405; J2470